=== PATIENT | male | born 1990 | race Caucasian/White ===

== ENCOUNTER 2022-01-25 07:52 | Emergency (ER) | payer OTHER, MEDICAID, SELFPAY ==
--- NOTE | ~2022-01-25 | CT_ITS ---
EXAMINATION: CT lumbar spine wo con DATE: 01/25/2022 08:50 INDICATION: Back pain TECHNIQUE: Computed tomography (CT) of the lumbar spine was performed without intravenous contrast. T he dose-length product (DLP) was 189.16 mGy-cm. Iterative reconstruction was used. COMPARISON: None FINDINGS: There are 2 mm of retrolisthesis of L5 on S1. There is mild loss of intervertebral disc spa ce height at L5-S1. The vertebral body heights are maintained. There is no fracture. There are mild p osterior disc bulges at L4-5 and L5-S1. IMPRESSION: 1. Mild lumbar spondylosis without acute findings. Reviewed, dictated and finalized at location A.
[2022-01-25 07:58] VITALS: BP 134/93; PULSE 76; RESP 16; TEMP 36.3; O2SAT 99
[2022-01-25 08:21] LABS: Basophils Percent Auto 0.8 % (0.2-1.2); Eosinophils Absolute Auto 0.1 K/mm3 (0-0.3); Eosinophils Percent Auto 1.3 % (0-4.4); Hematocrit 41.5 % (42.0-52.0); Hemoglobin 14.5 g/dL (14.0-18.0); Immature Granulocyte Absolute 0.01 K/mm3 (0.00-0.031); Immature Granulocyte Percent A 0.3 % (0-0.5); Lymphocytes Absolute Auto 2.32 K/mm3 (0.9-3.2); Lymphocytes Percent Auto 60.3 % (18.3-44.2); Mean Corpuscular HGB Conc 34.9 g/dl (32-36); Mean Corpuscular Hemoglobin 32.9 pg (26-34); Mean Corpuscular Volume 94.1 fl (80-100); Mean Platelet Volume 9.5 fl (7.4-10.4); Monocytes Absolute Auto 0.3 K/mm3 (0.1-0.6); Monocytes Percent Auto 8.6 % (2.6-8.5); Neutrophils Absolute Auto 1.1 K/mm3 (1.3-6.7); Neutrophils Percent Auto 28.7 % (45.5-73.1); Platelet Count Result 152 k/mm3 (150-375); Red Blood Count 4.41 M/mm3 (4.6-6.20); Red Cell Distribution Width 12.6 % (11.5-14.5); White Blood Count 3.9 K/mm3 (4.5-10.0)
[2022-01-25 08:30] VITALS: BP 111/80; PULSE 71; RESP 16; O2SAT 100
[2022-01-25 08:33] LABS: Anion Gap 14 mmol/L (8-16); Blood Urea Nitrogen 12 mg/dL (9-20); CRP < 0.5 mg/dL (<1.0); Calcium 8.8 mg/dL (8.4-10.2); Carbon Dioxide 29 mmol/L (22-30); Chloride 98 mmol/L (98-107); Estimated CRCL calculation 99 ml/min; Estimated Glomerular Filt Rate > 60; Glucose 90 mg/dL (65-110); Potassium 3.7 mmol/L (3.4-5.0); Sodium 141 mmol/L (137-145)
[2022-01-25 09:00] VITALS: BP 107/76; PULSE 75; RESP 16; O2SAT 99
[2022-01-25 09:06] LABS: Erythrocyte Sedimentation Rate 10 mm/hr (0-20)
[2022-01-25 09:45] VITALS: BP 90/59; PULSE 59; RESP 16; O2SAT 100
[2022-01-25 10:43] VITALS: BP 94/65; PULSE 62; RESP 16; O2SAT 98
--- NOTE | 2022-01-25 10:44 | ED.BACK ---
HPI - Back Pain/Injury General Chief Complaint: Back Pain/Injury Stated Complaint: electrical sensation through spine Time Seen by Provider: 01/25/22 08:04 History of Present Illness HPI Narrative: Patient is a 31-year-old male who presents ER with low back pain. Ongoing for couple months. Reports he gets electrical sensation in his spine but when he describes electric-like sensation he reports that since he over his low back that we will move vertically. He reports when he takes hydroxyzine for anxiety it improves his discomfort. No lower extremity numbness or tingling. No difficulty with urination or defecation. No anesthesia of his groin. Denies fevers or chills or sweats. Reports 10 pound weight loss over the last month but is unsure what that is related to. No nausea or vomiting. No history of IV drug abuse. No trauma to the back. Related Data Allergies Allergy/AdvReac Type Severity Reaction Status Date / Time No Known Allergies Allergy Verified 01/25/22 07:53 Review of Systems Review of Systems: All systems reviewed & are unremarkable except as noted in HPI and below Constitutional: Constitutional: Denies chills and Denies fever(s) ENT: Denies nasal congestion and Denies sore throat Cardiovascular: Cardiovascular: Denies chest pain, Denies rapid heart rate and Denies radiating jaw, neck or arm pain Respiratory: Respiratory: Denies cough and Denies dyspnea Gastrointestinal: Gastrointestinal: Denies abdominal pain, Denies nausea and Denies vomiting Genitourinary: Genitourinary: Denies oliguria, Denies dysuria, Denies urinary frequency and Denies urinary incontinence Musculoskeletal: Musculoskeletal: Reports back pain, Denies arthralgias and Denies joint swelling Integumentary/Breasts: Skin/Breast: Denies erythema and Denies rash Neurologic: Denies headache(s), Denies focal weakness and Denies numbness PMFSH Past Medical History Medical History (Updated 01/25/22 @ 11:03 by Lalo Ricketts MD) Anxiety Surgical History Surgical History (Updated 01/25/22 @ 10:46 by Lalo Ricketts MD) No history of previous surgery Social History Social History (Updated 01/25/22 @ 10:46 by Llao Ricketts MD) Substance use type: does not use and IV drugs Exam Narrative: GENERAL: Well-appearing, well-nourished, and in no acute distress. HEAD: Normocephalic, atraumatic. NECK: Supple. No tenderness in the midline and paraspinal musculature of the cervical spine. CHEST: Clear to auscultation. No respiratory distress. HEART: Regular rate and rhythm. Normal peripheral pulses. ABDOMEN: Soft, nontender, nondistended. Back: No reproducible tenderness the T/L-spine midline or paraspinal musculature of the same levels. No evidence of trauma. EXTREMITIES: Normal range of motion. No edema. Ambulates without issue. SKIN: Warm, dry, no rash. NEURO: Alert and oriented x3. PSYCH: Normal mood and affect. Course Course Emergency Course: Patient without pain at this time. Images unremarkable. Discussed the blood work which showed elevated lymphocyte percentage with a normal leukocyte count slight decrease in his white blood cell count. I discussed case with Dr. Faith who is on-call for people without a PCP. He would like the patient to contact his office for close follow-up and repeat blood testing. Discussed with patient that we have to take into account the lymphocytes and his back pain that leukemia/lymphoma are included in her differential. Repeat blood testing will help tell us if we need to explore further whether this could be a cause of his back pain. Vital Signs Vital signs: Vital Signs Temperature 97.4 F L 01/25/22 07:58 Pulse Rate 76 01/25/22 07:58 Respiratory Rate 16 01/25/22 07:58 Blood Pressure 134/93 H 01/25/22 07:58 Pulse Oximetry 99 01/25/22 07:58 Oxygen Delivery Room Air 01/25/22 07:58 Temperature 97.4 F L 01/25/22 07:58 Pulse Rate 62 01/25/22 10:43 Respira
[2022-01-25 11:26] VITALS: BP 106/73; PULSE 87; RESP 18; O2SAT 98
== END 2022-01-25 11:35 | disposition home or self-care (01) ==
PROVIDERS: Emergency Provider Emergency Medicine
DX: M54.50 Low back pain, unspecified (principal); D72.820 Lymphocytosis (symptomatic); M47.816 Spondylosis without myelopathy or radiculopathy, lumbar region
CPT/HCPCS: 36415; 72131; 80048; 85025; 85652; 86140; 99284